=== PATIENT | female | born 1975 | race Caucasian/White ===

== ENCOUNTER 2024-12-11 12:42 | Emergency (ER) | payer SELFPAY ==
[2024-12-11 12:57] VITALS: BP 168/95; PULSE 100; RESP 16; TEMP 36.7; O2SAT 98; BMI 33.3
--- NOTE | 2024-12-11 13:07 | ECG_ITS ---
[facility] Test Date: 2024-12-11 Pat Name: Francia Koo Department: Room: Gender: Female Hospital Coder: : [id number] Requested By: Carson Zavala Order Number: [id number] Lico MD: Zuhair Torers M.D. Measurements Intervals Riddle Rate: 88 P: 40 NM: 131 QRS: 77 QRSD: 82 T: 43 QT: 360 QTc: 437 Interpretive Statements SINUS RHYTHM No previous ECG available for comparison Electronically Signed On 12-14-2024 00:03:35 [employer] by Zuhair Torres M.D. [id number]
--- NOTE | 2024-12-11 13:16 | W.ED.OVERDOS ---
HPI - Overdose General: Chief Complaint: Overdose Stated Complaint: ivermectin ingestion Time Seen by Provider: 12/11/24 13:02 Source: patient Mode of arrival: ambulatory Limitations: no limitations History of Present Illness: 49-year-old female who states that she has had a viral-like illness over the last few days she states she had taken ivermectin last night states she took 2 tablespoons which she believes was too much states states she has had some dizziness not feeling well she did not try to make herself vomit last night did take activated charcoal as well. Denies any worse improving factors Related Data Allergies Allergy/AdvReac Type Severity Reaction Status Date / Time No Known Allergies Allergy Verified 12/11/24 13:02 Review of Systems Const: Denies: fever(s), chills, body aches or change in appetite Eyes: Reports: blurry vision ENMT: Denies: throat pain or dental pain Card: Denies: chest pain Resp: Denies: dyspnea GI: Denies: abdominal pain, nausea, vomiting or diarrhea Musc: Denies: neck pain or back pain Skin/Breast: Denies: rash Neuro: Reports: headache(s) Physical Exam Const: COMMON NORMALS: no acute distress, patient oriented x3 and healthy appearing HENMT: COMMON NORMALS: normocephalic and atraumatic HEAD & SCALP: normocephalic and atraumatic Eye: COMMON NORMALS: Equal, round and reactive pupils present and EOMs intact bilaterally PUPIL: Yes Equal, round and reactive pupils present Neck/C-Spine: COMMON NORMALS: full ROM and supple Chest: COMMONS NORMALS: normal inspection of the chest Resp: COMMON NORMALS: normal respiratory effort, No retractions, No use of accessory muscles and clear to auscultation bilaterally AUSCULTATION: clear to auscultation bilaterally Cardio: COMMON NORMALS: regular rate, regular rhythm and No murmurs present (Cardio) RATE: regular rate RHYTHM: regular rhythm Extremity: COMMON NORMALS: normal to inspection and full ROM Neuro: COMMON NORMALS: patient oriented x3, moves all extremities and no focal motor deficits Psych: COMMON NORMALS: mental status grossly normal, Normal thought process present and cooperative THOUGHT PROCESS: Normal thought process present Skin: COMMON NORMALS: no rashes or lesions noted and no wounds GENERAL SKIN EXAM: no rashes or lesions noted Course Vital Signs: Vital signs: Vital Signs Temperature 98.1 F 12/11/24 12:57 Pulse Rate 100 12/11/24 12:57 Respiratory Rate 16 12/11/24 12:57 Blood Pressure 168/95 12/11/24 12:57 Pulse Oximetry 98 12/11/24 12:57 Oxygen Delivery Me thod Room Air 12/11/24 12:57 MDM - Overdose Medical Decision Making Patient presents here with reaction to taken ivermectin she feels much improved currently she is well-appearing here no signs of toxic effects here she stable for discharge follow-up PCP return if worsening Medical Records I reviewed the patient's medical records. Lab Data I reviewed the patient's lab results. 12/11/24 13:46 12/11/24 13:46 Laboratory Results WBC 7.83 10^3/uL (3.29-11.43) 12/11/24 13:46 RBC 4.13 10^6/uL (3.85-5.65) 12/11/24 13:46 Hgb 13.20 g/dL (11.27-16.99) 12/11/24 13:46 Hct 40.3 % (36-47) 12/11/24 13:46 MCV 97.6 fl (85-98) 12/11/24 13:46 MCH 32.0 pg (27-33) 12/11/24 13:46 MCHC 32.8 g/dL (30-55) 12/11/24 13:46 RDW 13.2 % (12.1-15.1) 12/11/24 13:46 Plt Count 265 10^3/cmm (157-399) 12/11/24 13:46 MPV 8.8 fL (7.4-10.4) 12/11/24 13:46 Neut % (Auto) 67.6 % 12/11/24 13:46 Lymph % (Auto) 18.8 % 12/11/24 13:46 Mayes % (Auto) 10.1 % 12/11/24 13:46 Eos % (Auto) 2.2 % 12/11/24 13:46 Baso % (Auto) 0.9 % 12/11/24 13:46 Neut # (Auto) 5.30 10^3/uL (1.8-7.7) 12/11/24 13:46 Lymph # (Auto) 1.5 10^3/uL (0.8-4.8) 12/11/24 13:46 Mayes # (Auto) 0.8 10^3/uL (0.2-0.9) 12/11/24 13:46 Eos # (Auto) 0.2 10^3/uL (0.0-0.8) 12/11/24 13:46 Baso # (Auto) 0.1 10^3/uL (0.0-0.1) 12/11/24 13:46 Nucleated RBC % (auto) 0 % 12/11/24 13:46 Nucleated RBCs # 0.0 /100WBC 12/11/24 13:46 Sodium 136 mmol/L (136-145) 12/11/24 13:46 Potassium 3.9 mmol/L (3.5-5.1) 12/11/24 13:46 Chloride 102 mmol/L (98-107) 12/11/24 13:46 Carbon Dioxide 20 mmol/L (22-29) L 12/11/24 13:46 Anion Gap 17.9 (5-19) 12/11/24 13:46 BUN 8 mg/dL (6-20) 12/11/24 13:46 Creatinine 0.6 mg/dL (0.5-0.9) 12/11/24 13:46 GFR Calculation 106.7 mL/min (90-130) 12/11/24 13:46 Glucose 113 mg/dL (65-115) 12/11/24 13:46 Calculated Osmolality 281 mOsm/kg (285-295) L 12/11/24 13:46 Calcium 9.6 mg/dL (8.5-10.5) 12/11/24 13:46 Total Bilirubin 0.3 mg/dL (0.15-1.2) 12/11/24 13:46 AST 19 U/L (0-32) 12/11/24 13:46 ALT 24 U/L (0-33) 12/11/24 13:46 Alkaline Phosphatase 73 U/L (35-105) 12/11/24 13:46 Total Protein 6.5 g/dL (6.6-8.7) L 12/11/24 13:46 Albumin 4.1 g/dL (3.5-5.2) 12/11/24 13:46 Globulin 2.4 g/dL (1.3-4.6) 12/11/24 13:46 All radiology interpretation(s) finalized by discharge EKG Data EKG 1: I personally reviewed and interpreted this EKG as follows: EKG interpretation date: 12/11/24 EKG interpretation time: 13:26 Interpretation: nsr hr [address] elevation qrs 82 qtc 406 Discharge Plan Discharge Patient Disposition: Home Clinical Impression: Medication adverse effect Condition: Stable Discharge Orders: Discharge ED (Routine); Ordered 12/11/24 Ordered By: Carson Zavala Discharge Diet: Advance as tolerated Discharge Activity: Resume usual activity Patient Instructions: Medication Safety, Accidental Ingestion of Medicine in Children (DC) Coding Level of Care Code ED Psychological Operations Specialist for Letitia Goff
[2024-12-11 14:03] LABS: Basophils # 0.1 10^3/uL (0.0-0.1); Basophils % 0.9 %; Eosinophils # 0.2 10^3/uL (0.0-0.8); Eosinophils % 2.2 %; Hematocrit 40.3 % (36-47); Lymphocytes # 1.5 10^3/uL (0.8-4.8); Lymphocytes % 18.8 %; Mean Corpuscular HGB Conc 32.8 g/dL (30-55); Mean Corpuscular Volume 97.6 fl (85-98); Mean Platelet Volume 8.8 fL (7.4-10.4); Monocytes # 0.8 10^3/uL (0.2-0.9); Monocytes % 10.1 %; Neutrophils % 67.6 %; Nucleated Red Blood Cells % 0 %; Platelet Count 265 10^3/cmm (157-399); Red Blood Count 4.13 10^6/uL (3.85-5.65); Red Cell Distribution Width 13.2 % (12.1-15.1); White Blood Count 7.83 10^3/uL (3.29-11.43)
[2024-12-11 14:23] LABS: Alanine Aminotransferase 24 U/L (0-33); Albumin Level 4.1 g/dL (3.5-5.2); Alkaline Phosphatase 73 U/L (35-105); Anion Gap 17.9 (5-19); Aspartate Amino Transferase 19 U/L (0-32); Blood Urea Nitrogen 8 mg/dL (6-20); Calcium 9.6 mg/dL (8.5-10.5); Carbon Dioxide 20 mmol/L (22-29); Chloride 102 mmol/L (98-107); Creatinine Clr Calc Pharmacy 127.5949; Globulin 2.4 g/dL (1.3-4.6); Glomerular Filtration Rate 106.7 mL/min (90-130); Glucose 113 mg/dL (65-115); Osmolality Calculated 281 mOsm/kg (285-295); Potassium 3.9 mmol/L (3.5-5.1); Sodium 136 mmol/L (136-145); Total Bilirubin 0.3 mg/dL (0.15-1.2); Total Protein 6.5 g/dL (6.6-8.7)
== END 2024-12-11 15:34 | disposition home or self-care (01) ==
PROVIDERS: Emergency Provider Emergency Medicine
DX: T50.905A Adverse effect of unspecified drugs, medicaments and biological substances, initial encounter (principal); X58.XXXA Exposure to other specified factors, initial encounter
CPT/HCPCS: 36415; 80053; 85025; 93005; 99284